=== PATIENT | female | born 1975 | race Two or more races ===

== ENCOUNTER 2018-10-03 16:24 | Emergency (ER) | payer MEDICARE, OTHER ==
[~2018-10-03] VITALS: Ht 160 cm; Wt 81.6 kg
[2018-10-03 16:37] VITALS: BP 131/65
--- NOTE | 2018-10-03 17:02 | NUR ---
Patient discharged to home in stable condition. Written and verbal after care instructions given. Patient verbalizes understanding of instruction. Home Ambulatory Stable
[2018-10-21] MEDS ORDERED: CYAN-51 PO (09:48)
[2018-10-21] MEDS ORDERED: OMEP20CA11 PO (09:48)
[2018-10-21] MEDS ORDERED: BUME1TAB34 PO (10:21)
== END 2018-10-03 17:01 | disposition home or self-care (01) ==
LOC: ER 16:26
DX: L30.9 Dermatitis, unspecified (principal)

== ENCOUNTER 2018-10-21 09:07 | Inpatient (IN) | payer MEDICARE, OTHER ==
[~2018-10-21] VITALS: Ht 160 cm; Wt 82.1 kg
--- NOTE | 2018-10-21 09:10 | NUR ---
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 PATIENT A/OX4, C/O CHEST PAIN 10/10. ATTACHED TO THE BOTTLE TESTER, CHANGED INTO GOWN.
--- NOTE | 2018-10-21 09:12 | NUR ---
APPLIED O2 ON 2LPM VIA NC. IV LINE ESTABLISHED ON RIGHT HAND G20.
[2018-10-21] MEDS ORDERED: OMEP20CA10 PO (09:48)
[2018-10-21] MEDS ORDERED: POTA10TA15 PO (09:48)
[2018-10-21] MEDS ORDERED: AMLO5TAB9 PO (09:48)
[2018-10-21] MEDS ORDERED: CYAN10009 PO (09:48)
[2018-10-21] MEDS ORDERED: BIOT10TA PO (09:48)
[2018-10-21] MEDS ORDERED: CALC-7 PO (09:48)
[2018-10-21] MEDS ORDERED: FERR325T23 PO (09:48)
[2018-10-21] MEDS ORDERED: FLUT16SP16 BNOSTRILS (09:48)
[2018-10-21] MEDS ORDERED: ENOX40DI SQ (09:48)
[2018-10-21] MEDS ORDERED: AZAT50TA18 PO (09:48)
[2018-10-21] MEDS ORDERED: POLY15DR17 EACHEYE (09:49)
[2018-10-21] MEDS ORDERED: PRED20TA PO (09:49)
[2018-10-21] MEDS ORDERED: MACI10TA PO (09:49)
[2018-10-21] MEDS ORDERED: OMEG1CAP PO (09:49)
[2018-10-21] MEDS ORDERED: SELE PO (09:49)
[2018-10-21] MEDS ORDERED: FURO-144 PO (09:49)
[2018-10-21] MEDS ORDERED: HYDR200T81 PO (09:49)
[2018-10-21] MEDS ORDERED: METO2.5T2 PO (09:49)
[2018-10-21] MEDS ORDERED: RIOC2.5T PO (09:49)
[2018-10-21] MEDS ORDERED: SULF1TAB48 PO (09:49)
[2018-10-21] MEDS ORDERED: MAGN400T26 PO (09:49)
[2018-10-21] MEDS ORDERED: TRAZ-182 PO (09:49)
[2018-10-21] MEDS ORDERED: GABA-534 PO (09:49)
[2018-10-21] MEDS ORDERED: ZINC50TA4 PO (09:58)
[2018-10-21] MEDS ORDERED: WARF5TAB77 PO (09:58)
[2018-10-21] MEDS ORDERED: WARF10TA22 PO (09:58)
--- NOTE | 2018-10-21 10:00 | NUR ---
PATIENT'S CHEST PAIN RELIEVED. VERBALIZES VERY MINIMAL PAIN AT THIS TIME. NO DISTRESS NOTED.
[2018-10-21 10:04] LABS: BASOPHILS % (AUTO) 0.5 % (0.0-2.0); EOSINOPHILS % (AUTO) 0.8 % (0.0-6.0); HEMATOCRIT 36 % (33-45); HEMOGLOBIN 11.2 g/dL (11.5-14.8); LYMPHOCYTES # (AUTO) 1.3 /CMM (0.8-4.8); LYMPHOCYTES % (AUTO) 21.6 % (20.0-44.0); MEAN CORPUSCULAR HGB CONC 31 g/dl (31.0-36.0); MEAN CORPUSCULAR VOLUME 84 fL (82-100); MONOCYTES # (AUTO) 0.4 /CMM (0.1-1.30); MONOCYTES % (AUTO) 6.1 % (2.0-12.0); NEUTROPHILS # (AUTO) 4.4 /CMM (1.8-8.9); PLATELET COUNT (AUTO) 544 /CMM (150-450); RED BLOOD CELL COUNT(AUTO) 4.25 MIL/uL (4.0-5.2); WHITE BLOOD COUNT (AUTO) 6.1 K/uL (4.3-11.0)
[2018-10-21 10:15] LABS: CALCIUM, SERUM 8.6 mg/dL (8.5-10.1); CARBON DIOXIDE 35 mmol/L (21-32); CHLORIDE 101 mmol/L (98-107); CREATININE 0.9 mg/dL (0.6-1.3); GLUCOSE 99 mg/dL (74-106); SODIUM SERUM 141 mmol/L (136-145); UREA NITROGEN, BLOOD 23 mg/dL (7-18)
[2018-10-21 10:16] LABS: POTASSIUM 2.7 mmol/L (3.5-5.1)
[2018-10-21] MEDS ORDERED: BUME1TAB5 PO (10:21)
[2018-10-21] MEDS ORDERED: POTASSIUM CL. PREMIX PERIPHER. 200 ML ONE (10:27)
[2018-10-21] MEDS: POTASSIUM CL. PREMIX PERIPHER. 50 ML IV SCH ×4 (10:35→13:55)
[2018-10-21] MEDS ORDERED: IV NS 0.9% 1,000 ML BAG IV ONE (11:00)
--- NOTE | 2018-10-21 11:12 | NUR ---
[facility] PAGED, DR SEGURA ON-CALL. AWAITING FOR CALL BACK.
--- NOTE | 2018-10-21 11:20 | NUR ---
REPORT GIVEN TO BRINDA CUMMINGS.
--- NOTE | 2018-10-21 12:15 | NUR ---
DIRECTOR PEDIATRIC NOTES RECEIVED PT FROM E.R. STAFF VIA MICKEY, PT IS ALERT AND ORIENTED, ASSISTED TO BED, MADE COMFORTABLE, ROOM SET UP ORIENTATION PROVIDED TO PT, VERBALIZED UNDERSTANDING, WITH COMPLAINT OF MILD CHEST PAIN 3/10, NO SOB, NO COMPLAINT OF NAUSEA OR VOMITING, CALL LIGHT PLACED WITHIN EASY REACH, ON TELE MONITORING, SINUS RHYTHM ON THE MONITOR, NEEDS ATTENDED, WILL CONTINUE TO MONITOR.
--- NOTE | 2018-10-21 12:23 | NUR ---
PATIENT TRANSFERRED TO ROOM 323-2 VIA ACLS PROTOCOL. PATIENT IN STABLE CONDITION, DENIES PAIN AT THIS TIME.
--- NOTE | 2018-10-21 12:24 | NUR ---
ENDORSED 2 BAGS OF POTASSIUM IV TO BRINDA CUMMINGS TO BE ADMINISTERED
[2018-10-21 12:30] VITALS: BP 115/71
[2018-10-21] MEDS ORDERED: ONDANSETRON HCL/PF 4 MG/2 ML VIAL IVP PRN (12:30)
[2018-10-21] MEDS ORDERED: MAGNESIUM HYDROXIDE 30 ML UDC PO PRN (12:30)
[2018-10-21] MEDS ORDERED: POTASSIUM CHLORIDE 20 MEQ TAB.PRT.SR PO ONE (12:30)
[2018-10-21] MEDS ORDERED: HYDROCODONE/APAP 5/325MG 1 EACH TABLET PO PRN (12:30)
[2018-10-21] MEDS ORDERED: ACETAMINOPHEN 325 MG TABLET PO PRN (12:30)
[2018-10-21] MEDS ORDERED: MAG HYDROX/AL HYDROX/SIMETH 30 ML UDC PO PRN (12:30)
[2018-10-21] MEDS ORDERED: Z GUARD REMEDY 2 OZ OINT TP PRN (12:30)
[2018-10-21] MEDS ORDERED: ZOLPIDEM TARTRATE 5 MG TABLET PO PRN (12:30)
[2018-10-21] MEDS: ASPIRIN 81 MG TAB.CHEW PO SCH (12:46)
[2018-10-21] MEDS: IV NS 0.9% 1,000 ML IV PRN (13:57)
[2018-10-21 16:00] VITALS: BP 111/61
--- NOTE | 2018-10-21 16:12 | NUR ---
DIRECTOR OF MEDICAL STAFF SERVICES NOTES PT IN BED, STATED THAT SHE IS FEELING BETTER, NO MORE PAIN, NOT IN DISTRESS, SEEN BY DR. SEGURA, PLAN OF CARE DISCUSSED WITH PT, VERBALIZED UNDERSTANDING.
--- NOTE | 2018-10-21 18:34 | NUR ---
BUSINESS CHANGE MANAGER NOTES PT IN BED, AWAKE, ALERT AND ORIENTED, NO COMPLAINT OF CHEST PAIN OR ANY DISCOMFORT, RESPIRATIONS NORMAL, IV FLUIDS INFUSING WELL, TOLERATING CURRENT DIET, ALL NEEDS ATTENDED.
--- NOTE | 2018-10-21 19:20 | NUR ---
RN OPENING NOTES: RECEIVED PATIENT RESTING COMFORTABLY IN BED. NO COMPLAIN OF CHEST PAIN. AMBULATORY. A/O X4. CALL LIGHT WITHIN REACH. NO BLE EDEMA NOTED.
--- NOTE | 2018-10-21 19:45 | NUR ---
ADVISED PATIENT TO KEEP THE O2 NC.
[2018-10-21 20:00] VITALS: BP 113/62
--- NOTE | 2018-10-21 22:13 | NUR ---
DR EPPS WAS PAGED FOR HOME MEDS RECONCILIATION.
--- NOTE | 2018-10-21 23:02 | NUR ---
TEXTED DR EPPS RE: FOLLOW UP FOR HOME MEDS RECON. REPLIED TOMORROW, CLARIFIED IT. WAITING FOR THE RESPONSE.
--- NOTE | 2018-10-21 23:06 | NUR ---
PATIENT'S HOME MEDS ARE: LOVENOX 80MG, RIOCIGUAT 2.5MG, SELEXIPAG 800MCG AND SELEXIPAG 200MCG, AND LETAIRIS 10MG, ALL TEXTED TO DR EPPS. AND RESPONDED THAT DAYTIME DR WILL RECONCILE THEM TOMORROW. WILL ENDORSE TOMORROW FOR FOLLOW UP.
[2018-10-22] VITALS: BP 113/60
[2018-10-22 04:00] VITALS: BP 113/62
[2018-10-22 04:03] VITALS: BP 113/62
[2018-10-22] MEDS: IV NS 0.9% 1,000 ML IV PRN (04:32)
--- NOTE | 2018-10-22 06:10 | NUR ---
RN CLOSING NOTES: PATIENT IS RESTING COMFORTABLY IN BED. NO C/O PAIN. NO CHEST PAIN DURING THE SHIFT. AMBULATORY. NO ACUTE EVENTS OVERNIGHT. HEMODYNAMICS AND RESPIRATORY STATUS ARE STABLE. DR LYNN CONSULTED, BREAKFAST HELD, PATIENT AWARE, AND SIGN POSTED ON THE DOOR. CALL LIGHT WITHIN REACH. BED IN LOW AND LOCKED POSITION.
[2018-10-22 06:22] LABS: BASOPHILS % (AUTO) 0.2 % (0.0-2.0); HEMATOCRIT 37 % (33-45); HEMOGLOBIN 11.7 g/dL (11.5-14.8); LYMPHOCYTES # (AUTO) 0.4 /CMM (0.8-4.8); LYMPHOCYTES % (AUTO) 6.4 % (20.0-44.0); MEAN CORPUSCULAR HGB CONC 32 g/dl (31.0-36.0); MEAN CORPUSCULAR VOLUME 83 fL (82-100); MONOCYTES # (AUTO) 0.2 /CMM (0.1-1.30); MONOCYTES % (AUTO) 2.9 % (2.0-12.0); NEUTROPHILS # (AUTO) 5.6 /CMM (1.8-8.9); NEUTROPHILS % (AUTO) 90.5 % (43.0-81.0); PLATELET COUNT (AUTO) 596 /CMM (150-450); RED BLOOD CELL COUNT(AUTO) 4.44 MIL/uL (4.0-5.2); WHITE BLOOD COUNT (AUTO) 6.2 K/uL (4.3-11.0)
[2018-10-22 06:39] LABS: CALCIUM, SERUM 8.9 mg/dL (8.5-10.1); MAGNESIUM 2.2 mg/dL (1.8-2.4); PHOSPHORUS 4.9 mg/dL (2.5-4.9)
[2018-10-22 06:43] LABS: THYROID STIMULATING HORMONE 1.171 uIU/mL (0.358-3.74)
[2018-10-22] MEDS ORDERED: SULFAMETH/TRIMETH 800/160 MG 1 UDTAB TABLET PO SCH (07:30)
[2018-10-22 07:34] LABS: POTASSIUM 2.8 mmol/L (3.5-5.1)
--- NOTE | 2018-10-22 07:34 | NUR ---
RN MDS COORDINATOR OPENING NOTES: RECEIVED PATIENT AWAKE IN BED IN NO ACUTE SIGNS OF DISTRESS NOTED. A/O X4, VERBALLY RESPONSIVE, NO C/O CHEST PAIN OR ANY DISCOMFORTS AT THIS TIME. ON 02 VIA N/C @ 3LPM, TOLERATING WELL WITH NO SOB NOTED. ON TELEMONITORING WITH CURRENT READING OF SR WITH HR ON THE 60'S, NO CARDIAC DISTRESS VOICED. IV ACCESS ON RIGHT HAND INTACT AND PATENT, IVF INFUSING ORDERED, NO S/S OF INFILTRATIONS NOTED. BED IN LOW LOCKED POSITION WITH SR UP X2. CALL LIGHT WITHIN REACH. WILL CONTINUE TO MONITOR.
[2018-10-22 08:00] VITALS: BP 104/71
[2018-10-22] MEDS ORDERED: PANTOPRAZOLE 40 MG TABLET.DR PO SCH (08:51)
[2018-10-22] MEDS ORDERED: POTASSIUM CHLORIDE 10 MEQ TABLET.SA PO SCH (09:00)
[2018-10-22] MEDS ORDERED: AZATHIOPRINE 50 MG TABLET PO SCH (09:00)
[2018-10-22] MEDS ORDERED: AMLODIPINE BESYLATE 5 MG TABLET PO SCH (09:00)
[2018-10-22] MEDS ORDERED: METOLAZONE 2.5 MG TABLET PO SCH (09:00)
[2018-10-22] MEDS ORDERED: BUMETANIDE (1 MG) 1 MG TABLET PO SCH (09:00)
[2018-10-22] MEDS ORDERED: predniSONE 20 MG TABLET PO SCH (09:00)
[2018-10-22] MEDS ORDERED: HYDROXYCHLOROQUINE 200 MG TABLET PO SCH (09:00)
[2018-10-22] MEDS: POTASSIUM CHLORIDE 20 MEQ TAB.PRT.SR PO SCH ×5 (09:06→13:17)
[2018-10-22] MEDS: TRAZODONE 50 MG TABLET PO SCH ×3 (09:07→16:20)
[2018-10-22] MEDS: FERROUS SULFATE (325 MG) 325 MG/TAB TABLET PO SCH ×2 (09:07→16:21)
[2018-10-22] MEDS: ASPIRIN 81 MG TAB.CHEW PO SCH (09:08)
[2018-10-22] MEDS: MAGNESIUM OXIDE 400 MG TABLET PO SCH ×2 (09:08→16:20)
[2018-10-22] MEDS ORDERED: ENOXAPARIN SODIUM 80 MG/0.8 ML DISP.SYRIN SQ ONE (12:30)
[2018-10-22] MEDS ORDERED: WARFARIN SODIUM 5 MG TABLET PO SCH (13:00)
[2018-10-22 14:23] LABS: CALCIUM, SERUM 8.6 mg/dL (8.5-10.1); CREATININE 1.3 mg/dL (0.6-1.3); POTASSIUM 3.6 mmol/L (3.5-5.1)
--- NOTE | 2018-10-22 15:14 | NUR ---
RN NOTES PATIENT NOTED WITH LOW LEVEL POTASSIUM 2.8 TODAY. MD MADE AWARE. K-DUR 100MEQ GIVEN ORDERED. POTASSIUM LEVEL RECHECKED THIS AFTERNOON AND WENT TO NORMAL LEVEL 3.6, DR SEGURA WITH ORDER TO D/C HOME PATIENT.
[2018-10-22 16:00] VITALS: BP 113/53
--- NOTE | 2018-10-22 18:20 | NUR ---
[facility] NOTES PT DISCHARGED HOME IN STABLE CONDITION. A/O X4, SAME ABLE TO MAKE NEEDS KNOWN. ALL NEEDS NAD CARE ATTENDED WELL. V/S TAKEN AND RECORDED. SKIN IS INTACT. ALL BELONGINGS ACCOUNTED FOR AND SIGNED FORM. IV ACCESS ON RIGHT HAND REMOVED WITH MINIMAL BLEEDING NOTED DUE TO PT TAKING ANTICOAGULANT, PRESSURE GAUZED APPLIED. NAME ARMBAND REMOVED. HEALTH/ DISCHARGE INSTRUCTIONS GIVEN TO PT AND VERBALIZED UNDERSTANDING. PT LEFT UNIT AT AMBULATORY AT 1805. MD AND CHARGE NURSE AWARE OF DISCHARGE.
== END 2018-10-22 18:05 | disposition home or self-care (01) | DRG 206 ==
LOC: ER 09:08 → TELE 11:38 → MED 10-22 08:52
PROVIDERS: ADMIT Internal Medicine; ATTEND Internal Medicine
DX: M94.0 Chondrocostal junction syndrome [Tietze] (principal); D68.69 Other thrombophilia; I42.9 Cardiomyopathy, unspecified; E87.6 Hypokalemia; I10 Essential (primary) hypertension; K21.9 Gastro-esophageal reflux disease without esophagitis; Z79.01 Long term (current) use of anticoagulants; Z95.828 Presence of other vascular implants and grafts; M32.9 Systemic lupus erythematosus, unspecified; Z79.52 Long term (current) use of systemic steroids; Z86.718 Personal history of other venous thrombosis and embolism; D50.9 Iron deficiency anemia, unspecified; D47.3 Essential (hemorrhagic) thrombocythemia; Z98.890 Other specified postprocedural states; Z79.899 Other long term (current) drug therapy
CPT/HCPCS: 36415; 71045-TC; 80048-TC; 80061-TC; 83540-TC; 83735-TC; 84100-TC; 84439-TC; 84443-TC; 84484-TC; 85025-TC; 85610-TC; 85730-TC; 87081-TC; 93307-TC; G0378; J1650; J3480; J7030; J7500

== ENCOUNTER 2019-08-12 22:52 | Emergency (ER) | payer MEDICARE, OTHER ==
[~2019-08-12] VITALS: Ht 160 cm; Wt 81.2 kg
[~2019-08-12 22:52] MED LIST: AMLO5TAB9 PO; AZAT50TA18 PO; BIOT10TA PO; BUME1TAB34 PO; CALC-7 PO; CYAN-51 PO; ENOX40DI SQ; FERR325T23 PO; FLUT16SP16 BNOSTRILS; HYDR200T81 PO; MACI10TA PO; MAGN400T26 PO; METO2.5T2 PO; OMEG1CAP PO; OMEP20CA15 PO; POLY15DR17 EACHEYE; POTA10TA15 PO; PRED20TA PO; RIOC2.5T PO; SELE PO; SULF1TAB48 PO; TRAZ-182 PO; WARF10TA22 PO; WARF5TAB77 PO; ZINC50TA71 PO
--- NOTE | 2019-08-12 23:05 | NUR ---
PATIENT SENT BY PMD TO THE ED D/T LOW POTASSIUM LEVEL AT 2.5. PT AAOX4, RR EVEN ANDUNLABORED ON RA W NAD NOTED. PT ENDORSES BEING WEAK. PT CONNECTED TO THE COMMAND CENTER ANALYST AND POX
--- NOTE | 2019-08-12 23:27 | NUR ---
BLOOD COLLECTED AND SENT TO LAB
[2019-08-12 23:43] LABS: CALCIUM, SERUM 7.7 mg/dL (8.5-10.1); CARBON DIOXIDE 28 mmol/L (21-32); CHLORIDE 105 mmol/L (98-107); GLUCOSE 98 mg/dL (74-106); POTASSIUM 4.6 mmol/L (3.5-5.1); SODIUM SERUM 140 mmol/L (136-145); UREA NITROGEN, BLOOD 23 mg/dL (7-18)
[2019-08-12 23:48] LABS: ALANINE AMINOTRANSFERASE 61 U/L (12-78); ALBUMIN 3.6 g/dL (3.4-5.0); ALKALINE PHOSPHATASE 90 U/L (46-116); ASPARTATE AMINOTRANSFERASE 72 U/L (15-37); BILIRUBIN,TOTAL 0.3 mg/dL (0.2-1.0)
[2019-08-12 23:59] LABS: BASOPHILS # (AUTO) 0.2 /CMM (0.0-0.2); BASOPHILS % (AUTO) 3.3 % (0.0-2.0); EOSINOPHILS % (AUTO) 4.5 % (0.0-6.0); HEMATOCRIT 37 % (33-45); LYMPHOCYTES % (AUTO) 17.3 % (20.0-44.0); MEAN CORPUSCULAR HGB CONC 32 g/dl (31.0-36.0); MEAN CORPUSCULAR VOLUME 80 fL (82-100); MONOCYTES # (AUTO) 0.4 /CMM (0.1-1.30); MONOCYTES % (AUTO) 7.9 % (2.0-12.0); NEUTROPHILS # (AUTO) 3.8 /CMM (1.8-8.9); PLATELET COUNT (AUTO) 457 /CMM (150-450); RED BLOOD CELL COUNT(AUTO) 4.66 MIL/uL (4.0-5.2); WHITE BLOOD COUNT (AUTO) 5.7 K/uL (4.3-11.0)
[2019-08-13 01:18] VITALS: BP 117/84
--- NOTE | 2019-08-13 01:18 | NUR ---
Patient discharged to home in stable condition. Written and verbal after care instructions given. Patient verbalizes understanding of instruction.
== END 2019-08-13 01:19 | disposition home or self-care (01) ==
LOC: ER 22:57
DX: R53.1 Weakness (principal); E83.51 Hypocalcemia; E87.6 Hypokalemia; I11.0 Hypertensive heart disease with heart failure; I50.9 Heart failure, unspecified; Z86.718 Personal history of other venous thrombosis and embolism; Z79.01 Long term (current) use of anticoagulants; Z79.899 Other long term (current) drug therapy
CPT/HCPCS: 36415; 80048-TC; 80076-TC; 83735-TC; 84484-TC; 85025-TC; 85730-TC

== ENCOUNTER 2019-09-19 20:54 | Emergency (ER) | payer MEDICARE, OTHER ==
[~2019-09-19] VITALS: Ht 160 cm; Wt 77.1 kg
[~2019-09-19 20:54] MED LIST changes: +WARF5TAB PO; -WARF5TAB77 PO
[2019-09-19 21:59] VITALS: BP 114/67
== END 2019-09-19 22:32 | disposition home or self-care (01) ==
LOC: EDUNIT# 20:54 → ER 20:58
DX: R21 Rash and other nonspecific skin eruption (principal); I11.0 Hypertensive heart disease with heart failure; I50.9 Heart failure, unspecified; Z79.899 Other long term (current) drug therapy; Z79.01 Long term (current) use of anticoagulants

== ENCOUNTER 2022-09-25 11:40 | Emergency (ER) | payer MEDICARE, OTHER ==
[~2022-09-25] VITALS: Ht 160 cm; Wt 77.1 kg
[~2022-09-25 11:40] MED LIST changes: +AMLO-212 PO; -AMLO5TAB9 PO
[2022-09-25 11:48] VITALS: BP 129/59
[2022-09-25] MEDS ORDERED: PSEUDOEPHEDRINE HCL 30 MG TABLET ONE (12:15)
[2022-09-25] MEDS ORDERED: PSEUDOEPHEDRINE HCL 30 MG TABLET PO ONE (12:30)
== END 2022-09-25 13:48 | disposition home or self-care (01) ==
LOC: ER 11:59
DX: J32.9 Chronic sinusitis, unspecified (principal); Z79.899 Other long term (current) drug therapy